=== PATIENT | female | born 1985 | race Caucasian/White ===

== ENCOUNTER 2021-12-07 16:46 | Emergency (ER) | payer OTHER ==
--- NOTE | 2021-12-07 19:37 | ED Physician Documentation ---
PD HPI UPPER EXT INJURY - Stated complaint Stated Complaint: RT FING LAC/C+ - Chief complaint Chief Complaint: Laceration - History obtained from History obtained from: Patient - Additonal information Additional information: Patient is a 36-year-old female with no significant past medical history prese nting for evaluation of dog bite to right index finger that occurred last night. Patient reports that it is dog but is not familiar to her and was in her yard. She does have new neighbors that may have pets. The animal did appear well- groomed and not mangy. She believes she startled the dog and when she tried to shoo it away the dog bit her finger. Today she has noticed redness and increased pain to the digit.Her tetanus is up-to-date.Patient also tested positive for COVID on . She woke up with a nonproductive cough and intermittent fevers.She currently denies chest pain or difficulty breathing. Review of Systems Constitutional: reports: Fever (COVID+) Cardiac: denies: Chest pain / pressure Respiratory: reports: Cough GI: denies: Abdominal Pain, Vomiting Skin: reports: Bite / sting (Right index finger) Musculoskeletal: reports: Extremity pain Neurologic: denies: Headache PD PAST MEDICAL HISTORY - Past Medical History Past Medical History: Yes Cardiovascular: None Respiratory: None Neuro: None Endocrine/Autoimmune: None GI: None INSURANCE ANALYST: None : None HEENT: None Psych: Depression, Anxiety, Panic attacks Musculoskeletal: None Derm: None - Past Surgical History Past Surgical History: No - Present Medications Home Medications: Ambulatory Orders Medication Instructions Recorded Confirmed Amox/Clav 875/125 [Augmentin 1 tablet PO Q12H 10 Days #20 tablet 12/07/21 875/125 Tab] Sertraline [Zoloft] 50 mg PO DAILY 12/07/21 12/07/21 clonazePAM [Clonazepam] 0.5 mg PO BID PRN 12/07/21 12/07/21 hydrOXYzine HCL [Hydroxyzine HCl] 25 mg PO Q6HR PRN 12/07/21 12/07/21 - Allergies Allergies/Adverse Reactions: Allergies Allergy/AdvReac Type Severity Reaction Status Date / Time No Known Drug Allergies Allergy Verified 12/07/21 17:00 - Social History Does the pt smoke?: No Smoking Status: Never smoker Does the pt drink ETOH?: No Does the pt have substance abuse?: No - Immunizations Immunizations are current?: Yes PD ED PE NORMAL - General General: Alert and oriented X 3, No acute distress, Well developed/nourished - HEENT HEENT: Atraumatic, Moist mucous membranes - Neck Neck: Supple, no meningeal sign - Cardiac Cardiac: RRR, No murmur, Strong equal pulses - Respiratory Respiratory: No respiratory distress, Clear bilaterally - Extremities Extremities: Other (Right index finger with multiple healing puncture wounds, Mild erythema to medial aspect of digit, patient is able to bend and extend at all joints but there is some limitations due to mild swelling, No tenderness dir ected over tendon sheath) PD ED PE EXPANDED - Extremities ALEENA UE/Hands Visual: 1 - rash, laceration (several puncture wounds) Results - Vitals Vitals: Vital Signs - 24 hr 12/07/21 12/07/21 17:01 19:47 Temperature 37.2 C 37.2 C Heart Rate 74 74 Respiratory 16 16 Rate Blood Pressure 119/74 118/72 O2 Saturation 98 98 Oxygen O2 Source Room air PD MEDICAL DECISION MAKING - ED course ED course: Patient presenting for evaluation of dog bite injury to right index finger. Patient has several puncture wounds to the digit with faint areas of erythema. Patient does have tenderness to the digit and mild swelling. She is able to range of motion at each joint but does have some limitations due to swelling and pain. No tenderness along tendon sheath. No discrete abscess. Patient is to be started on Augmentin. She is advised that she needs very close follow-up regarding her wound infection. She is aware that if she has worsening in pain, swelling or range of motion that she needs to return immediately to the ER.Patient's tetanus is already up-to-date. ICOM Notified per animal bite protocol. Per patient's description, the dog did not sound rabid And last rabies case in dog in [place] was in 1986. Departure - Departure Disposition: 01 Home, Self Care Clinical Impression: Finger infection Dog bite of finger Qualifiers: Encounter type: initial encounter Qualified Code(s): S61.259A - Open bite of unspecified finger without damage to nail, initial encounter Condition: Stable Instructions: ED Infec Skin Cellulitis, ED Bite Dog Prescriptions: Amox/Clav 875/125 [Augmentin 875/125 Tab] 1 tablet PO Q12H 10 Days #20 tablet Comments: Your evaluated after a dog bite.Dog bites can often get infected and it appears that you have the start of an infection to your finger. I have started you on an antibiotic called Augmentin. I will send the prescription to [facility] in [place]. Please keep a close eye on your finger for the next several days. If it seems to be getting any worse in regards to swelling, pain, redness, more difficult to move Or you have any concerns then please return immediately to the emergency department. You also have known COVID. Please continue with quarantining per CDC recommendations. Discharge Date/Time: 12/07/21 19:45
[2021-12-07] MEDS: AMOX/CLAV 875 MG/125 MG TABLET PO STA (19:44)
[2021-12-07 19:50] VITALS: BP 118/72
== END 2021-12-07 19:45 | disposition home or self-care (01) ==
LOC: ED 16:46
DX: U07.1 COVID-19 (principal); S61.250A Open bite of right index finger without damage to nail, initial encounter; L08.9 Local infection of the skin and subcutaneous tissue, unspecified; W54.0XXA Bitten by dog, initial encounter; Y93.89 Activity, other specified; Y92.007 Garden or yard of unspecified non-institutional (private) residence as the place of occurrence of the external cause
CPT/HCPCS: 99282; A9270